=== PATIENT | male | born 1960 | race Caucasian/White ===

== ENCOUNTER 2021-02-15 14:03 | Outpatient (CLI) | payer OTHER | END 2021-02-15 14:04 | disposition home or self-care (01) | LOC: BICCT 14:03 | PROVIDERS: ATTEND Family Medicine | DX: R10.9 Unspecified abdominal pain (principal) | CPT/HCPCS: 74176 ==

== ENCOUNTER 2023-02-17 09:07 | Outpatient (CLI) | payer BC | END 2023-02-17 09:08 | disposition home or self-care (01) | LOC: BICMRI 09:07 | PROVIDERS: ATTEND Orthopaedic Surgery | DX: S46.011A Strain of muscle(s) and tendon(s) of the rotator cuff of right shoulder, initial encounter (principal); S43.51XA Sprain of right acromioclavicular joint, initial encounter; S43.431A Superior glenoid labrum lesion of right shoulder, initial encounter ==